=== PATIENT | male | born 1965 | race American Indian/Alaskan Native ===

== ENCOUNTER 2016-12-28 17:25 | Emergency (ER) | payer OTHER ==
[2016-12-28 18:04] LABS: Basophils % (Auto) 0.5 % (0.0-1.8); Eosinophils % (Auto) 0.4 % (0.0-4.3); Hemoglobin 15.3 gm/dl (11.8-15.2); Mean Corpuscular HGB Conc 33 % (32-34); Mean Corpuscular Hemoglobin 28 pg (28-32); Mean Corpuscular Volume 86 fl (84-94); Platelet Count 300 K/mm3 (140-440); Red Blood Count 5.48 M/mm3 (3.65-5.03); Red Cell Distribution Width 14.1 % (13.2-15.2); White Blood Count 7.7 K/mm3 (4.5-11.0)
[2016-12-28 18:23] LABS: Anion Gap 27 mmol/L; BUN/Creatinine Ratio 13.75; Blood Urea Nitrogen 11 mg/dL (9-20); Calcium 9.9 mg/dL (8.4-10.2); Carbon Dioxide 26 mmol/L (22-30); Chloride 85.9 mmol/L (98-107); Glucose 423 mg/dL (75-100); Potassium 3.8 mmol/L (3.6-5.0); Sodium 135 mmol/L (137-145)
[2016-12-28] MEDS ORDERED: NACL 0.9% 1000 ML 1,000 ML ONE (22:48)
[2016-12-28] MEDS ORDERED: NACL 0.9% 1000 ML IV ONE (22:58)
[2016-12-29] MEDS ORDERED: NACL 0.9% 1000 ML 1,000 ML IV ONE (04:08)
[2016-12-29] MEDS ORDERED: MORPHINE IV ONE (04:52)
[2016-12-29] MEDS ORDERED: ZOFRAN IV ONE (04:52)
[2016-12-29] MEDS ORDERED: NORMODYNE IV ONE (05:30)
--- NOTE | 2016-12-29 05:33 | Emergency Department Report ---
HPI - General Chief Complaint: Chest Pain Time Seen by Provider: 12/29/16 04:09 - HPI HPI: The patient is a 51-year-old male with a history of diabetes, whom presents for evaluation of chest pain. The patient reports chest pain since 4 PM earlier today, 12 hours prior to my evaluation, constant since onset, midsternal in location, aching in quality, 10/10 in severity. He states that his current symptoms are consistent with previous episodes of chest pain. The patient denies fever, trauma to the chest wall, neck pain, parasthesias, dyspnea, cough , hemoptysis, palpitations, dizziness, unilateral leg swelling, calf muscle pain. Patient also denies cocaine or other stimulant use, history of DVT or PE , recent immobilization, or history of cancer. ED Past Medical Hx - Past Medical History Previous Medical History?: Yes Hx Diabetes: Yes - Surgical History Past Surgical History?: No - Social History Smoking Status: Never Smoker Substance Use Type: None ED Review of Systems ROS: Stated complaint: CHEST PAIN /HEADACHE/LIGHTHEADED Other details as noted in HPI Constitutional: denies: fever ENT: denies: throat or neck pain Respiratory: denies: cough, shortness of breath Cardiovascular: reports chest pain Endocrine: denies unexplained weight loss or gain Gastrointestinal: denies: abdominal pain, nausea Genitourinary: denies: dysuria Musculoskeletal: denies: leg swelling Skin: denies: rash Neurological: denies: headache Hematological/Lymphatic: denies: easy bleeding or easy bruising Psych: denies sadness or hopelessness Physical Exam - Physical Exam Vital Signs: Vital Signs 12/28/16 12/28/16 17:41 22:38 Temperature 97.4 F L 98.4 F Pulse Rate 103 H 120 H Respiratory 18 20 Rate Blood Pressure 154/94 151/108 O2 Sat by Pulse 99 100 Oximetry Physical Exam: General: well-nourished, well-developed, no acute distress Head: Normocephalic, atraumatic Eyes: normal sclera ENT: Mucous membranes are pale and dry Neck: No neck stiffness, no cervical adenopathy Respiratory: Breath sounds equal bilaterally, no wheezing, rales, or rhonchi Cardio: S1 and S2 present, no murmurs, rubs, gallops, capillary refill is delayed Abdomen: Normoactive bowel sounds, soft abdomen, no rigidity, no guarding or rebound tenderness Chest WALL/Back: No tenderness to palpation of the chest wall, no CVA tenderness with percussion Musc: No pitting edema Skin: No rash Neuro: no facial drooping, normal speech Psych: Normal affect ED Course Vital Signs 12/28/16 12/28/16 17:41 22:38 Temperature 97.4 F L 98.4 F Pulse Rate 103 H 120 H Respiratory 18 20 Rate Blood Pressure 154/94 151/108 O2 Sat by Pulse 99 100 Oximetry ED Medical Decision Making - Lab Data Result diagrams: 12/28/16 17:49 12/28/16 17:49 - Medical Decision Making The patient was seen and examined by myself. The patient is placed on a hspt tutor and continuous pulse ox. On initial evaluation, the patient was found to be in no distress. EKG was negative for findings suggestive of acute cardiac infarct. Labs and imaging are obtained. The patient is given IV morphine for his pain and 1 L normal saline fluid bolus for treatment of dehydration. Chest x-ray is negative for pneumothorax, focal consolidation, pulmonary vascular congestion, pleural effusion, or other obvious acute cardiopulmonary disease process. Lab results revealed elevated RBC, hemoglobin, and hematocrit , consistent with hemoconcentration exam finding of dehydration. Labs also exhibit elevated glucose 330, with normal bicarbonate and anion gap, not consistent with DKA, and overall labs were non-concerning including nml levels of troponin, WBC, electrolytes, renal function. The patient given IV Rocephin for treatment of hyperglycemia. The patient was reevaluated and reported that their symptoms were markedly improved. Patient found to have normal heart rate, heart rate, blood pressure, and O2 saturation. As the patient has a SHELIA risk score less than 2, and a well 's score less than 2, the patient is at low risk of ACS or pulmonary emboli etiology of their symptoms. The patient is stable for discharge with outpatient follow-up. The patient is given follow-up and return instructions. The patient expressed understanding and agreed with the plan. The patient is discharged in stable condition. Critical care attestation.: If time is entered above; I have spent that time in minutes in the direct care of this critically ill patient, excluding procedure time. ED Disposition Clinical Impression: Acute chest pain, Acute hyperglycemia, Dehydration Disposition: DISCHARGED TO HOME OR SELFCARE Is pt being admited?: No Does the pt Need Aspirin: No Condition: Stable Instructions: Chest Pain (ED), Costochondritis (ED), Diabetic Hyperglycemia (ED ) Referrals: PRIMARY CARE, [Primary Care Provider] - 3-5 Days Time of Disposition: 05:29
[2016-12-29 05:56] VITALS: BP 113/68
--- NOTE | 2016-12-29 08:16 | XRay Report ---
AP CHEST : 12/29/16 CLINICAL: Chest pain. COMPARISON:None FINDINGS: Normal heart and pulmonary vessels. The lungs are normally expanded and clear. The bones and soft tissues are unremarkable. IMPRESSION: Normal chest.
== END 2016-12-29 06:47 | disposition home or self-care (01) ==
LOC: ED 17:25
DX: E11.65 Type 2 diabetes mellitus with hyperglycemia (principal); R07.9 Chest pain, unspecified; E86.0 Dehydration
CPT/HCPCS: 36415; 71010; 80048; 82962; 84484; 85025; 93005; 93010; 96361; 96374; 96375; 99285; J2270; J2405; J7030; J1815